=== PATIENT | female | born 1940 | race Caucasian/White ===

== ENCOUNTER 2019-04-20 07:24 | Inpatient (IN) ==
[2019-04-20] MEDS ORDERED: Clindamycin 900 MG/50 ML 900 MG/50 ML IV.SOLN IVPB ONE (07:39)
[2019-04-20] MEDS ORDERED: Ringers Solution, Lactated 1,000 ML IVC SCH (07:45)
[2019-04-20] MEDS ORDERED: Propofol 500 MG/50 ML INFUS..BTL ONE (08:43)
[2019-04-20] MEDS ORDERED: *HR* FentaNYL (PF) 100 MCG/2 ML VIAL ONE (08:43)
[2019-04-20] MEDS ORDERED: Ethanol\\Acetic Acid\\Na Ace\\Ben 1,000 ML IRRIG.SOLN IR ONE (09:09)
[2019-04-20] MEDS ORDERED: Tranexamic Acid 1,000 MG/10 ML VIAL ONE (09:34)
[2019-04-20] MEDS ORDERED: *HR* PHENYLEPHRINE 1,000 MCG/10 ML SYRINGE IVP ONE ×2 (09:38→10:13)
[2019-04-20] MEDS ORDERED: EPHEDrine 50 MG/ML VIAL ONE (10:00)
[2019-04-20 11:36] LABS: Hemoglobin 11.1 g/dL (11.5-15.4)
[2019-04-20] MEDS ORDERED: Temazepam 15 MG CAPSULE PO PRN (12:12)
[2019-04-20] MEDS ORDERED: *HR* Promethazine 25 MG/ML VIAL IVP PRN (12:12)
[2019-04-20] MEDS ORDERED: BEVACIZUMAB IV SCH (12:12)
[2019-04-20] MEDS ORDERED: Ondansetron 4 MG/2 ML VIAL IVP PRN (12:12)
[2019-04-20] MEDS ORDERED: Sennosides 8.6 MG TABLET PO PRN (12:12)
[2019-04-20] MEDS ORDERED: Naloxone 0.4 MG/ML INJ IVP PRN (12:12)
[2019-04-20] MEDS ORDERED: MOM Conc 10 ML UD.LIQ PO PRN (12:12)
[2019-04-20] MEDS: HYDROcodone BIT/Homatropine 5 MG TABLET PO PRN (13:50)
[2019-04-20] MEDS: Ringers Solution, Lactated 1,000 ML IVC SCH (14:10)
[2019-04-20] MEDS: *HR* OxyCODONE Immed Rel 5 MG TABLET PO PRN ×2 (15:43→19:53)
[2019-04-20] MEDS: Clindamycin 900 MG/50 ML 900 MG/50 ML IV.SOLN IVPB SCH (15:45)
[2019-04-20] MEDS: Ascorbic Acid 500 MG TABLET PO SCH (17:00)
[2019-04-20] MEDS: clonazePAM 0.5 MG TABLET PO SCH (19:53)
[2019-04-20] MEDS: Lisinopril 20 MG TABLET PO SCH (21:05)
[2019-04-21] MEDS: HYDROcodone BIT/Homatropine 5 MG TABLET PO PRN ×2 (01:25→05:58)
[2019-04-21] MEDS: Clindamycin 900 MG/50 ML 900 MG/50 ML IV.SOLN IVPB SCH (01:25)
[2019-04-21] MEDS: *HR* OxyCODONE Immed Rel 5 MG TABLET PO PRN ×4 (08:28→21:58)
[2019-04-21] MEDS: hydroCHLOROthiazide 25 MG TABLET PO SCH (08:28)
[2019-04-21] MEDS: Ascorbic Acid 500 MG TABLET PO SCH ×2 (08:28→17:00)
[2019-04-21] MEDS: Multivit/Ca/Min/Fe/FA 1 TAB TABLET PO SCH (08:29)
[2019-04-21] MEDS: clonazePAM 0.5 MG TABLET PO SCH ×2 (08:38→21:58)
[2019-04-21] MEDS: Lisinopril 20 MG TABLET PO SCH ×2 (08:38→21:58)
[2019-04-21] MEDS: amLODIPine 5 MG TABLET PO SCH (08:38)
[2019-04-21] MEDS: Ringers Solution, Lactated 1,000 ML IVC SCH ×2 (10:05→16:59)
[2019-04-21] MEDS: Aspirin Enteric Coated 81 MG Tablet PO SCH (10:25)
[2019-04-21 17:30] LABS: Basophils % 0.2 %; Eosinophils # 0.1 K/mcL (0.0-0.6); Eosinophils % 0.8 %; Hematocrit 31.1 % (35.3-44.9); Hemoglobin 10.4 g/dL (11.5-15.4); Immature Granulocytes % 0.2 % (0-4); Lymphocytes # 1.4 K/mcL (0.6-4.6); Lymphocytes % 21.2 %; Mean Corpuscular HGB Conc 33.4 g/dL (31.6-35.5); Mean Corpuscular Volume 86.6 fL (83.0-100.0); Mean Platelet Volume 9.5 fL (9.4-12.4); Monocytes # 0.4 K/mcL (0.0-1.3); Monocytes % 6.6 %; Neutrophils # 4.7 K/mcL (1.6-8.9); Platelet Count 214 K/mcL (140-400); Red Blood Count 3.59 M/mcL (3.82-4.97); Red Cell Distribution Width 12.8 % (11.5-14.5); White Blood Count 6.6 K/mcL (4.3-11.1)
[2019-04-21 17:50] LABS: BUN/Creatinine Ratio 16 (6-26); Blood Urea Nitrogen 12 mg/dL (8-23); Calcium 9.1 mg/dL (8.6-10.3); Carbon Dioxide 27 mEq/L (23-29); Chloride 100 mEq/L (98-107); Glucose 116 mg/dL (70-105); Osmolality,Calculated 283 (280-300); Potassium 3.3 mEq/L (3.5-5.1); Sodium 136 mEq/L (136-145); eGFR For African Americans > 60 (> 60); eGFR For Non-African Americans > 60 (> 60)
[2019-04-22 01:56] LABS: Basophils % 0.3 %; Eosinophils # 0.1 K/mcL (0.0-0.6); Eosinophils % 1.7 %; Hematocrit 30.2 % (35.3-44.9); Hemoglobin 9.9 g/dL (11.5-15.4); Immature Granulocytes % 0.3 % (0-4); Lymphocytes % 26.8 %; Mean Corpuscular HGB Conc 32.8 g/dL (31.6-35.5); Mean Corpuscular Hemoglobin 28.4 pg (28.0-33.3); Mean Corpuscular Volume 86.8 fL (83.0-100.0); Mean Platelet Volume 9.5 fL (9.4-12.4); Monocytes # 0.7 K/mcL (0.0-1.3); Monocytes % 9.1 %; Neutrophils # 4.6 K/mcL (1.6-8.9); Platelet Count 203 K/mcL (140-400); Red Blood Count 3.48 M/mcL (3.82-4.97); Segmented Neutrophils % 61.8 %; White Blood Count 7.5 K/mcL (4.3-11.1)
[2019-04-22 02:18] LABS: BUN/Creatinine Ratio 18 (6-26); Blood Urea Nitrogen 14 mg/dL (8-23); Calcium 8.7 mg/dL (8.6-10.3); Carbon Dioxide 27 mEq/L (23-29); Chloride 100 mEq/L (98-107); Glucose 111 mg/dL (70-105); Osmolality,Calculated 279 (280-300); Potassium 3.4 mEq/L (3.5-5.1); Sodium 134 mEq/L (136-145); eGFR For African Americans > 60 (> 60); eGFR For Non-African Americans > 60 (> 60)
[2019-04-22 05:52] LABS: Hematocrit 28.6 % (35.3-44.9); Hemoglobin 9.6 g/dL (11.5-15.4); Mean Corpuscular HGB Conc 33.6 g/dL (31.6-35.5); Mean Corpuscular Hemoglobin 28.5 pg (28.0-33.3); Mean Corpuscular Volume 84.9 fL (83.0-100.0); Mean Platelet Volume 9.4 fL (9.4-12.4); Platelet Count 216 K/mcL (140-400); Red Blood Count 3.37 M/mcL (3.82-4.97); Red Cell Distribution Width 12.9 % (11.5-14.5); White Blood Count 6.9 K/mcL (4.3-11.1)
[2019-04-22] MEDS: *HR* OxyCODONE Immed Rel 5 MG TABLET PO PRN (06:06)
[2019-04-22] MEDS: amLODIPine 5 MG TABLET PO SCH (08:16)
[2019-04-22] MEDS: Aspirin Enteric Coated 81 MG Tablet PO SCH (08:17)
[2019-04-22] MEDS: hydroCHLOROthiazide 25 MG TABLET PO SCH (08:17)
[2019-04-22] MEDS: Lisinopril 20 MG TABLET PO SCH ×2 (08:18→20:15)
[2019-04-22] MEDS: Multivit/Ca/Min/Fe/FA 1 TAB TABLET PO SCH (08:19)
[2019-04-22] MEDS: clonazePAM 0.5 MG TABLET PO SCH ×2 (08:19→20:15)
[2019-04-22] MEDS: Ascorbic Acid 500 MG TABLET PO SCH ×2 (08:19→16:05)
[2019-04-22] MEDS: HYDROcodone BIT/Homatropine 5 MG TABLET PO PRN ×2 (16:05→20:15)
[2019-04-23] MEDS: HYDROcodone BIT/Homatropine 5 MG TABLET PO PRN (04:56)
[2019-04-23 06:49] VITALS: BP 108/61
[2019-04-23] MEDS: amLODIPine 5 MG TABLET PO SCH (07:49)
[2019-04-23] MEDS: Ascorbic Acid 500 MG TABLET PO SCH (07:49)
[2019-04-23] MEDS: Aspirin Enteric Coated 81 MG Tablet PO SCH (07:49)
[2019-04-23] MEDS: Multivit/Ca/Min/Fe/FA 1 TAB TABLET PO SCH (07:49)
[2019-04-23] MEDS: hydroCHLOROthiazide 25 MG TABLET PO SCH (07:49)
[2019-04-23] MEDS: clonazePAM 0.5 MG TABLET PO SCH (07:49)
[2019-04-23] MEDS: Lisinopril 20 MG TABLET PO SCH (07:49)
== END 2019-04-23 12:45 | DRG 470 ==
LOC: SAMDAY 07:24 → 3NENU 12:03
PROVIDERS: ADMIT Orthopaedic Surgery; ATTEND Orthopaedic Surgery